=== PATIENT | male | born 1950 | race Hispanic/Latino ===

== ENCOUNTER → 2020-01-12 | Outpatient (CLI) | payer OTHER | END | disposition home or self-care (01) | LOC: OIH 12:59 | PROVIDERS: ATTEND Family Medicine | DX: M17.12 Unilateral primary osteoarthritis, left knee (principal); M21.852 Other specified acquired deformities of left thigh | CPT/HCPCS: 73562 ==

== ENCOUNTER → 2020-02-23 | Outpatient (CLI) | payer OTHER | END | disposition home or self-care (01) | LOC: OIH 09:51 | PROVIDERS: ATTEND Family Medicine | DX: M13.841 Other specified arthritis, right hand (principal); L03.113 Cellulitis of right upper limb | CPT/HCPCS: 73130 ==

== ENCOUNTER → 2020-03-25 | Outpatient (CLI) | payer OTHER | END | disposition home or self-care (01) | LOC: OIH 13:37 | PROVIDERS: ATTEND Internal Medicine | DX: M19.041 Primary osteoarthritis, right hand (principal); M19.042 Primary osteoarthritis, left hand; M19.072 Primary osteoarthritis, left ankle and foot; M19.071 Primary osteoarthritis, right ankle and foot ==

== ENCOUNTER 2025-06-02 19:20 | Emergency (ER) | payer OTHER ==
[~2025-06-02] VITALS: Ht 172.7 cm; Wt 77.6 kg
[2025-06-02 19:22] VITALS: TEMP 98.8
--- NOTE | 2025-06-02 19:34 | NUR ---
PT MOVED TO [facility] FROM [facility] AT THIS TIME.
--- NOTE | 2025-06-02 19:48 | ERN ---
ED Note History of Present Illness Stated Complaint: C/O CP Chief Complaint: Chest Pain Time Seen by MD: 19:41 Dictation: This is a 75-year-old male who presented to the emergency room complaining of chest pain. The chest pain is precordial and started around 3:00 p.m. today. Patient stated that he was washing his car outside when he began experiencing midsternal chest pain. He denied any diaphoresis or palpitations but stated that the pain bothered him enough that he called a friend and raised a concern for a cardiac pain. Hence patient came into the ER for further evaluation. Patient stated that he never had this kind of a pain any time before. No nausea vomitings no shortness of breath associated with it. No cough sputum or hemoptysis. Pain has no relation with the breathing. During my evaluation, patient stated that he was actively having chest pain. He denied lifting any heavy weights. Temperature 98.8 pulse 85 respirations 20 blood pressure 147/97 with a pulse oximetry of 95% on room air His chronic medical problems include hypertension and previous history of smoking. Allergies: Coded Allergies: No Known Allergies (Unverified Allergy, Unknown, 06/02/25) Past Medical History Past Medical History: Hypertension Surgical History: None Family History: Negative Social History: Negative RN Note Reviewed/Agreed w/PFSH: Yes Review of System Dictation Constitutional: Negative for fever,chills, and weight loss Eyes: Negative for injury, pain,redness, and discharge ENT: Negative for injury,pain or swelling Cardiovascular: Positive for chest pain, denied palpitations, and edema Respiratory: Negative for shortness of breath, cough, and wheezing, Abdomen/GI: Negative for abdominal pain, nausea, vomiting, diarrhea, and constipation Back: Negative for injury and pain : Negative for injury, bleeding and discharge MS/Extremity: Negative for injury and deformity Skin: Negative for rash, and discoloration Neuro: Negative for headache, weakness, numbness, tingling, and seizure Psych: Negative for suicide ideation, homicidal ideation, and hallucinations Initial Vital Sign VS Vital Signs Date Time Temp Pulse Resp B/P (MAP) Pulse Ox O2 Delivery O2 Flow Rate FiO2 06/02/25 19:22 98.8 85 20 147/79 95 Room Air 06/02/25 19:42 0 21 Physical Exam Dictation General: awake, alert, NAD Head/Face: Normocephalic, atraumatic Eyes: PERRL, EOMI, vision at baseline ENT: oral cavity clear, TMs clear, no signs of infection Neck: Trachea midline, supple, no nuchal rigidity Cardiovascular: RRR, normal S1/S2, No MRGs, no JVD. Midsternal all the way from sternal notch. There is some tenderness on palpation. Respiratory: CTAB, no respiratory distress, No rales or wheezes Abdomen: Soft, non-tender, non-distended, normal bowel sounds, no guarding or rebound. Skin: Warm, dry, normal turgor, no rash MS/Extremity: Pulses equal, no cyanosis, neurovascular intact, FROM Neuro: COAx4, GCS 15, strength 5/5, CN 2-12 intact, normal cerebellar exam, normal gait, Psych: Normal behavior, mood, and affect normal Extremities-trace edema without any palpable cords, Homans sign is negative Results (Laboratory/Radiology) Laboratory/Radiology Laboratory Tests Test 06/02/25 19:40 06/02/25 20:20 White Blood Count 8.3 K/uL (4.8-10.8) Red Blood Count 4.41 MIL/uL (4.50-6.20) L Hemoglobin 13.3 g/dL (14.0-18.0) L Hematocrit 40.5 % (42-54) L Mean Corpuscular Volume 91.8 fL (79-99) Mean Corpuscular Hemoglobin 30.2 pg (27.0-33.0) Mean Corpuscular Hemoglobin Concent 32.8 g/dL (32.0-36.0) Red Cell Distribution Width 13.2 % (11.0-15.5) Platelet Count 207 K/uL (130-400) Mean Platelet Volume 9.3 fL (7.5-10.5) Immature Granulocyte % (Auto) 0.5 % (0-1) Neutrophils (%) (Auto) 62.1 % (40.0-77.0) Lymphocytes (%) (Auto) 26.7 % (21.0-51.0) Monocytes (%) (Auto) 8.8 % (3.0-13.0) Eosinophils (%) (Auto) 1.7 % (0.0-8.0) Basophils (%) (Auto) 0.2 % (0.0-5.0) Neutrophils # (Auto) 5.2 K/uL (1.8-7.7) Lymphocytes # (Auto) 2.2 K/uL (1.0-4.8) Monocytes # (Auto) 0.7 K/uL (0.1-1.0) Eosinophils # (Auto) 0.14 K/uL (0.00-0.70) Basophils # (Auto) 0.02 K/uL (0.00-0.20) Absolute Immature Granulocyte (auto 0.04 K/uL (0-1) Nucleated Red Blood Cells 0.0 % (0.0-0.19) Sodium Level 138 mmol/L (136-145) Potassium Level 4.1 mmol/L (3.5-5.1) Chloride Level 103 mmol/L (101-111) Carbon Dioxide Level 30 mmol/L (21-32) Blood Urea Nitrogen 23 mg/dL (7-18) H Creatinine 0.8 mg/dL (0.5-1.3) Glomerular Filtration Rate Calc 92 mL/min (>90) Random Glucose 167 mg/dL (70-105) H Total Calcium 9.2 mg/dL (8.5-10.1) Total Creatine Kinase 106 U/L (21-232) Troponin I High Sensitivity 8 ng/L (4-75) 9 ng/L (4-75) Labs Reviewed?: Yes EKG Comment: Twelve lead EKG done on 06/02/2025 at 6:48 p.m. shows a heart rate of 91, [place] interval 154, QRS duration 89, QT/QTC 325/400 Impression sinus tachycardia with no acute ST-T elevations or deep ST depressions. EKG rhythm strip shows sinus tachycardia no other acute abnormality Interpreted by ER MD Dr. Gamez ED Course ED Course Orders Procedure Category Date Status Time Vital Signs Per CPOE 06/02/25 Transmitted Routine 19:26 Chest 1vw RAD 06/02/25 Resulted 19:26 12 Lead Ekg Tracing- EKG 06/02/25 Logged Technical 19:26 Oxygen By Nc/Pulse Ox CPOE 06/02/25 Transmitted 19:26 Maintain Iv CPOE 06/02/25 Transmitted 19:26 Iv Insertion CPOE 06/02/25 Transmitted 19:26 Cardiac Monitoring CPOE 06/02/25 Transmitted 19:26 Pulse Oximetry With CPOE 06/02/25 Transmitted Vs And Prn 19:26 Cbc With Differential LAB 06/02/25 Complete 19:26 Activity: Br W/Brp CPOE 06/02/25 Transmitted With Assist 19:26 Creatine Kinase, Total LAB 06/02/25 Complete 19:26 Troponin I High LAB 06/02/25 Complete Sensitivity 19:26 Urinalysis Profile LAB 06/02/25 Logged 19:26 Basic Metabolic Panel LAB 06/02/25 Complete 19:26 Nitroglycerin 0.4mg PHA 06/02/25 In Process Sl Tab (Nitrostat) 20:30 Ondansetron 4mg Inj PHA 06/02/25 Complete (Zofran 4mg Inj) 20:30 Troponin I High LAB 06/02/25 Complete Sensitivity 20:11 Aspirin 325mg Tab PHA 06/02/25 Complete (Aspirin 325mg Tab) 20:30 Morphine 2mg Syg PHA 06/02/25 Complete (Morphine 2mg Syg) 20:30 Current Medications Medications (Trade) Dose Ordered Sig/Maximo Route PRN Reason Start Time Stop Time Status Last Admin Dose Admin Aspirin (Aspirin 325mg Tab) 325 mg ONCE ONCE PO 06/02/25 20:30 06/02/25 20:31 DC 06/02/25 20:20 Morphine Sulfate (morPHINE 2MG SYG) 2 mg ONCE ONCE IVP 06/02/25 20:30 06/02/25 20:31 DC 06/02/25 20:19 Nitroglycerin (Nitrostat) 0.4 mg Q5M PRN SL CHEST PAIN 06/02/25 20:30 06/02/25 20:21 Ondansetron HCl (zoFRAN 4MG INJ) 4 mg ONCE ONCE IVP 06/02/25 20:30 06/02/25 20:31 DC 06/02/25 20:19 Vital Signs Date Time Temp Pulse Resp B/P (MAP) Pulse Ox O2 Delivery O2 Flow Rate FiO2 06/02/25 20:48 82 18 148/98 97 Room Air* 0 21 06/02/25 19:42 88 18 154/96 96 Room Air* 0 21 06/02/25 19:22 98.8 85 20 147/79 95 Room Air We will perform diagnostic labs, advanced imaging and administer medications according to the patient's complaint. Once the results are available, will review and personally interpreted the labs to rule out any acute life- threatening emergency the trach require immediate intervention and treatment. I will then re-evaluate the patient after treatment and diagnostic exams have return to determine whether the patient requires any further testing, can safely be discharged home or need further admission to hospital for additional treatment and evaluation. Labs reviewed CBC is with a normal limits BNP 7 is significant for a BUN and creatinine of 23 and 0.8 with a glucose of 167. Troponins are 8 chest x-ray is unremarkable. 9:10 p.m. patient stated that he feels significantly improved and his chest soreness has resolved. I updated him on all the lab results EKG and recommended that he should follow up with Dr. Baker his primary care physician to get a stress test at some point. He verbalized full understanding and would like to be discharged to home HEART Score Response (Comments) Value History: Low suspicion (0) 0 EKG: Normal 0 Age: > 65yrs (+2) 2 Risk Factors: 1-2 risk factors (+1) 1 Initial Troponin: Normal limit (0) 0 HEART Score Risk: Low Risk for MACE (1-3) Total 3 Medical Decision Making MDM Differential diagnosis: Chest wall pain, costochondritis, gastroesophageal reflux disease, gastritis, angina Rationale: Tests considered and ordered secondary to shared decision making include: Previous outside records reviewed: Old ER visits. Risk of complication and/or morbidity or mortality of patient management: None Medications-Per medication reconciliation Need for hospitalization: Patient does not meet criteria for hospitalization. Need for emergency major/minor surgery: No There are no social concerns with this patient. Prescription drug management Prescriptions will include symptomatic care Patient's prior external medical records from other ER visits were reviewed by me as indicated. Prior testing and results from previous visits were reviewed. Prior tests were taken into account with medical decision making and resource utilization, independent historian/historians were used to obtain complete medical history. I independently interpreted the test that were performed, results were reviewed by me and considered findings on radiology if ordered. Medical management and examination interpretation discussions were had by me with other qualified healthcare professionals as indicated for the patient's care. Problem List Problem List: (1) Midsternal chest pain (2) Hypertension (3) Nicotine dependence in remission DX & DISP Disposition: Discharge Departure Impression: Primary Impression: Midsternal chest pain Additional Impressions: Hypertension, Nicotine dependence in remission Condition: Stable Additional Instructions: Patient and the caregiver have been informed of all the diagnostic tests and the imaging conducted during the today's visit to the emergency room and has verbalized understanding of the results I have personally reviewed and int erpreted all diagnostic exams performed here in the ER today as well as the vital signs documented by the nursing staff. The patient is now being discharged to home and should follow up with the primary care physician or the specialist as directed by the ER staff. Follow-up with primary care provider in 1 to 2 days. Take medications as directed here in the emergency room. Okay to continue home medications unless otherwise discussed during your visit in the emergency room today. Return to your nearest emergency room if symptoms worsen or if there is no improvement. Call 911 if you need immediate assistance. Take Tylenol or Motrin [id number] as needed and if no contraindications are present. Increase oral hydration. A wound culture or urine culture was ordered here in the emergency room department please follow-up with primary care provider and advise them to get repeat ports from our facility. If you had any Aamir wrap/splints that were applied here, please do not remove them until you see your primary care or specialty. Referrals: GIULIA BAKER MD (PCP) SABINA GAMEZ MD Jun 02, 2025 19:48
[2025-06-02 19:53] LABS: IMMATURE GRANULOCYTE ABSOLUTE 0.04 K/uL (0-1); NUCLEATED RED BLOOD CELLS 0.0 % (0.0-0.19); PLATELET COUNT (AUTO) 207 K/uL (130-400); RED BLOOD CELL COUNT(AUTO) 4.41 MIL/uL (4.50-6.20); RED CELL DISTRIBUTION WIDTH 13.2 % (11.0-15.5); WHITE BLOOD COUNT (AUTO) 8.3 K/uL (4.8-10.8)
[2025-06-02] MEDS: ASPIRIN 325MG TAB PO ONE (20:20)
[2025-06-02 20:21] LABS: CREATININE 0.8 mg/dL (0.5-1.3); GLOMERULAR FILTR. RATE CALC 92.0 mL/min (>90); GLUCOSE,RANDOM 167.0 mg/dL (70-105); SODIUM SERUM 138.0 mmol/L (136-145); UREA NITROGEN, BLOOD 23.0 mg/dL (7-18)
[2025-06-02] MEDS: NITROGLYCERIN 0.4 MG SL TAB SL PRN (20:21)
[2025-06-02 20:33] LABS: CREATINE KINASE, TOTAL 106.0 U/L (21-232)
--- NOTE | 2025-06-02 20:33 | HMCIMG ---
EXAM: CR Chest, 1 View. CLINICAL HISTORY: CHEST PAIN COMPARISON: None provided. FINDINGS: LUNGS: There is no mass, infiltrate, or acute pulmonary abnormality. PLEURAL SPACES: No evidence of pleural effusion or pneumothorax. MEDIASTINUM: Cardiac size and mediastinal contours within normal limits. BONES: No acute osseous abnormality. IMPRESSION: No acute cardiopulmonary pathology is evident. /[place]
[2025-06-02 21:21] VITALS: BP 150/90; PULSE 72; RESP 18; O2SAT 97
--- NOTE | 2025-06-03 06:32 | EKG ---
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
== END 2025-06-02 21:32 | disposition home or self-care (01) ==
LOC: EDH 19:20
DX: R07.2 Precordial pain (principal); I10 Essential (primary) hypertension; F17.201 Nicotine dependence, unspecified, in remission
CPT/HCPCS: 99285; 96374; 71045; 96375; 82550; 84484 ×2; 80048; 85025; 36415; 93005; J2270; J2405